=== PATIENT | female | born 1975 | race Two or more races ===

== ENCOUNTER → 2021-08-19 | Day surgery (SDC) | payer OTHER ==
[~2021-08-19] VITALS: Ht 167.6 cm; Wt 56.7 kg
[~2021-08-19] MED LIST: CALCIUM WITH V1 EAC2 PO; KETOROLAC TROME10 MG PO; VIT C-ROSE HIP500 MG PO; [UNRECOGNIZED DRUG - OTHER] PO
== END | disposition home or self-care (01) ==
LOC: FAS 11:12
DX: O02.0 Blighted ovum and nonhydatidiform mole (principal)
CPT/HCPCS: 86850; 86900; 86901; J0690; J1885; J2250; J2405; J2704; J3010